=== PATIENT | male | born 1975 | race Caucasian/White ===

== ENCOUNTER 2016-10-04 21:23 | Emergency (ER) | payer BC ==
[~2016-10-04] VITALS: Ht 182.9 cm; Wt 67.3 kg
[2016-10-04 21:26] VITALS: TEMP 36.7; Ht 182.9 cm; Wt 67.3 kg
[2016-10-04] MEDS ORDERED: ONDANSETRON INJ 2 MG/ML 2 ML VIAL IV STA (21:44)
[2016-10-04] MEDS ORDERED: SODIUM CHLORIDE 0.9% 1000ML 2,000 ML IV STA (21:44)
[2016-10-04] MEDS ORDERED: FAMOTIDINE IV INJ 20 MG in DEXTROSE 5% 100ML 100 ML IV STA (21:44)
[2016-10-04] MEDS ORDERED: FAMOTIDINE 20MG/102 ML D5W ONE (21:49)
[2016-10-04 21:53] LABS: BASO % 0.2 %; BASO ABS # 0.01 K/uL (0-0.2); COMPLETE YES; EOS % 0.2 %; HEMATOCRIT 40.7 % (42-52); IG% 0.2 %; LYMPH % 9.2 %; LYMPH ABS # 0.59 K/uL (1.2-3.4); MEAN CELL VOLUME 85.9 fL (80-100); MEAN CORPUSCULAR HEMOGLOBIN 31.6 pg (25-34); MEAN CORPUSCULAR HGB CONC 36.9 g/dl (32-36); MEAN PLATELET VOLUME 9.3 fL (7.4-10.4); MONO % 7.2 %; PLATELET COUNT 206 K/uL (130-400); RED BLOOD COUNT 4.74 M/uL (4.7-6.1); WHITE BLOOD COUNT 6.38 K/uL (4.8-10.8)
[2016-10-04 22:07] LABS: BUN/CREATININE RATIO 23.7 (10-20); CALCIUM 8.4 mg/dl (8.5-10.1); CREATININE 0.94 mg/dl (0.60-1.40); MAGNESIUM 2.1 mg/dl (1.8-2.4); POTASSIUM 3.6 mmol/L (3.5-5.1)
[2016-10-04] MEDS ORDERED: MULT-506 PO (22:16)
[2016-10-04] MEDS ORDERED: DiphenhydrAMINE HCL 50 MG/ML VIAL IV STA (22:38)
[2016-10-04] MEDS ORDERED: METOCLOPRAMIDE HCL INJ 5 MG/ML 2 ML VIAL IV STA (22:38)
[2016-10-04] MEDS ORDERED: ONDANSETRON HOME PACK 4MG OD TAB PO ONE (23:30)
[2016-10-04 23:32] VITALS: BP 108/65; PULSE 80; O2SAT 97
--- NOTE | 2016-10-05 01:53 | EMERGENCY ROOM VISIT NOTE ---
History First contact with patient: 21:39 Chief Complaint: ILLNESS Stated Complaint: STOMACH FLU History of Present Illness The patient is a 41 year old male who presents to the Emergency Room with complaints of nausea and vomiting for the past day who's son was sick with same illness a few days ago. Patient denies fever, diarrhea, abdominal pain, chest pain, dyspnea, cough, congestion, neck stiffness. He is unable to keep fluids down. No bad food exposure. Vomiting is nonbloody and nonbilious non-coffee- ground in nature. Review of Systems See HPI for pertinent positives & negatives. A total of 10 systems reviewed and were otherwise negative. Past Medical/Surgical History Hernia repair Social History Smoking Status: Never Smoker Smokeless Tobacco Use: No Alcohol Use: none Drug Use: none Marital Status: Housing Status: lives with family Occupation Status: employed Current/Historical Medications Scheduled Multivitamin (Multivitamin), 1 TAB PO DAILY Allergies Coded Allergies: No Known Allergies (Unverified , 10/04/16) Physical Exam Vital Signs Date Time Temp Pulse Resp B/P Pulse Ox O2 Delivery O2 Flow Rate FiO2 10/04/16 23:32 80 16 108/65 97 10/04/16 23:20 80 16 108/65 97 Room Air 10/04/16 21:26 36.7 85 18 119/63 97 Room Air Pain Rating (0-10): 0 Physical Exam VITALS: Vitals are noted on the nurse's note and reviewed by myself. Vital signs stable. GENERAL: Pleasant male retching, in no acute distress, nondiaphoretic, well- developed well-nourished. SKIN: The skin was without rashes, erythema, edema, or bruising. There is no tenting of the skin. Capillary reflex less than 2 seconds. HEAD: Normocephalic atraumatic. EARS: External auditory canals clear, tympanic membranes pearly liu without erythema or effusion bilaterally. EYES: Pupils equal round and reactive to light and accommodation. Conjunctivae without injection, sclerae without icterus. Extraocular movements intact. NOSE: Patent, turbinates without inflammation or discharge. MOUTH: Mucous membranes mildly dry. Pharynx without erythema or exudate. Uvula midline. Airway patent. Tongue does not deviate. NECK: Supple without nuchal rigidity. No lymphadenopathy. No thyromegaly. Cervical spine is nontender. No JVD. HEART: Regular rate and rhythm without murmurs gallops or rubs. LUNGS: Clear to auscultation bilaterally without wheezes, rales or rhonchi. No dullness to percussion. No retractions or accessory muscle use. ABDOMEN: Positive bowel sounds x 4. Normal tympanic percussion. Soft, nontender, without masses or organomegaly. Mann sign negative. No guarding or rebound tenderness. MUSCULOSKELETAL: No muscle atrophy, erythema, or edema noted. NEURO: Patient was alert and oriented to person place and time. Normal sensation to light and sharp touch. No focal neurological deficits. Medical Decision & Procedures Laboratory Results 10/04/16 21:35 Red Blood Count 4.74, Mean Corpuscular Volume 85.9, Mean Corpuscular Hemoglobin 31.6, Mean Corpuscular Hemoglobin Concent 36.9, Mean Platelet Volume 9.3, Neutrophils (%) (Auto) 83.0, Lymphocytes (%) (Auto) 9.2, Monocytes (%) (Auto) 7.2, Eosinophils (%) (Auto) 0.2, Basophils (%) (Auto) 0.2, Neutrophils # (Auto) 5.30, Lymphocytes # (Auto) 0.59, Monocytes # (Auto) 0.46, Eosinophils # (Auto) 0.01, Basophils # (Auto) 0.01 10/04/16 21:35 Test 10/04/16 21:35 White Blood Count 6.38 K/uL (4.8-10.8) Red Blood Count 4.74 M/uL (4.7-6.1) Hemoglobin 15.0 g/dL (14.0-18.0) Hematocrit 40.7 % (42-52) Mean Corpuscular Volume 85.9 fL (80-100) Mean Corpuscular Hemoglobin 31.6 pg (25-34) Mean Corpuscular Hemoglobin Concent 36.9 g/dl (32-36) Platelet Count 206 K/uL (130-400) Mean Platelet Volume 9.3 fL (7.4-10.4) Neutrophils (%) (Auto) 83.0 % Lymphocytes (%) (Auto) 9.2 % Monocytes (%) (Auto) 7.2 % Eosinophils (%) (Auto) 0.2 % Basophils (%) (Auto) 0.2 % Neutrophils # (Auto) 5.30 K/uL (1.4-6.5) Lymphocytes # (Auto) 0.59 K/uL (1.2-3.4) Monocytes # (Auto) 0.46 K/uL (0.11-0.59) Eosinophils # (Auto) 0.01 K/uL (0-0.5) Basophils # (Auto) 0.01 K/uL (0-0.2) RDW Standard Deviation 40.7 fL (36.4-46.3) RDW Coefficient of Variation 12.8 % (11.5-14.5) Immature Granulocyte % (Auto) 0.2 % Immature Granulocyte # (Auto) 0.01 K/uL (0.00-0.02) Anion Gap 12.0 mmol/L (3-11) Est Creatinine Clear Calc Drug Dose 97.4 ml/min Estimated GFR () 115.4 Estimated GFR (Non- 99.6 BUN/Creatinine Ratio 23.7 (10-20) Calcium Level 8.4 mg/dl (8.5-10.1) Magnesium Level 2.1 mg/dl (1.8-2.4) Medications Administered Medications (Trade) Dose Ordered Sig/Girish Route Start Time Stop Time Status Last Admin Dose Admin Sodium Chloride (Nss 1000ml) 2,000 ml @ 999 mls/hr Q2H1M STAT IV 10/04/16 21:44 10/04/16 23:44 DC 10/04/16 21:50 999 MLS/HR Ondansetron HCl 4 mg 4 mg NOW STAT IV 10/04/16 21:44 10/04/16 21:45 DC 10/04/16 21:50 4 MG Famotidine/ Dextrose (Pepcid IV Inj/ D5 100ml) 102 ml @ 200 mls/hr NC STAT IV 10/04/16 21:44 10/04/16 22:14 DC 10/04/16 21:50 200 MLS/HR Metoclopramide HCl (Reglan Inj) 10 mg NOW STAT IV 10/04/16 22:38 10/04/16 22:39 DC 10/04/16 22:44 10 MG Diphenhydramine HCl (Benadryl Inj) 12.5 mg NOW STAT IV 10/04/16 22:38 10/04/16 22:39 DC 10/04/16 22:44 12.5 MG Ondansetron HCl (ZOFRAN ODT 4MG Home Pack) 1 homepack UD ONCE PO 10/04/16 23:30 10/04/16 23:31 DC 10/04/16 23:31 1 HOMEPACK ED Course Prior records/ancillary studies reviewed. Triage Nursing notes reviewed. Additional history obtained from the family. The patient's history was concerning for nausea, vomiting. Differential diagnosis: Etiologies such as gastroenteritis, food borne illness, infections, appendicitis , diverticulitis, inflammatory bowel disease, obstruction, GI bleed, biliary pathology, as well as others were entertained. Physical examination findings: As above. Abdominal examination revealed no tenderness. Vital signs reviewed and revealed stable. ER treatment provided: IV hydration 2 L NSS. Zofran, Reglan, Benadryl On reassessment the patient felt better. Patient was tolerating p.o. intake. Diagnostics interpretation by me: The labs revealed no worrisome leukocytosis or electrolyte abnormality This appears to be consistent with vomiting most likely viral in etiology. Patient was hydrated as above. He was able to tolerate by mouth fluids and felt better. He requested to leave. He was advised to do clear liquid diet today and then progress as tolerated to bland diet tomorrow. He was advised to follow-up family care in a few days or here in the ER sooner for abdominal pain , fevers, vomiting, worsening signs or symptoms or as needed. By the evaluation outlined above emergent etiologies such as appendicitis, diverticulitis, obstruction, cardiac sources, mesenteric ischemia, aortic pathology, inflammatory bowel disease, renal colic, PUD, biliary pathology, UTI, as well as others were deemed relatively unlikely. The pt informed about the findings as listed above. All questions were answered and pleased with the treatment. Return instructions were outlined and the patient was discharged in stable condition. Outpatient prescription management: Zofran Referral: The patient was referred to their primary care physician for follow-up in 2 to 3 days for a recheck of the current condition. Medical Decision As above Impression Primary Impression: Vomiting Additional Impression: Dehydration Departure Information Dispostion Home / Self-Care Condition GOOD Forms WORK / SCHOOL INSTRUCTIONS, HOME CARE DOCUMENTATION FORM, Days off work : 2 Work Instructions, IMPORTANT VISIT INFORMATION Patient Instructions Vomiting - [facility], [facility] Additional Instructions DO NOT drive, drink alcohol, operate machinery, or perform dangerous activities today. You were given medications in the ER that can affect your ability to safely function or operate a vehicle. Zofran(odansetron) tablets 4mg: Take one and allow it to dissolve in your mouth every four to six hours as needed for nausea or vomiting. Rest and drink plenty of fluids as tolerated. Slow sips of water or sports drinks are recommended instead of large amounts all at once. Continue current medications. Once your stomach is settled start with a clear liquid diet (jello, soup broth, etc.) and then advance as tolerated. You should avoid full, heavy meals for about 24 hrs from the time your symptoms resolved. Return to the ER for persistent vomiting, fevers, abdominal pain, chest pains, difficulty breathing, black or bloody stools, worsening of your condition, or as needed. Follow up with your primary physician in 2-3 days for a recheck of your current condition. Problem Qualifiers
== END 2016-10-04 23:32 | disposition home or self-care (01) ==
LOC: C.EDB 21:26
DX: R11.2 Nausea with vomiting, unspecified (principal); E86.0 Dehydration

== ENCOUNTER 2024-05-05 15:41 | Observation (INO) ==
[2024-05-05 18:03] LABS: Basophils # (auto) 0.04 K/uL (0.00-0.20); Basophils % (auto) 0.5 %; Eosinophils % (auto) 2.5 %; Hematocrit (blood only) 41.9 % (42.0-52.0); Hemoglobin 15.1 g/dl (14.0-18.0); Immature Granulocytes # (auto) 0.01 K/uL (0.01-0.20); Immature Granulocytes % (auto) 0.1 %; Lymphocytes # (auto) 3.84 K/uL (1.20-3.40); Lymphocytes % (auto) 47.1 %; Mean Corpuscular Hemoglobin 30.9 pg (25.0-34.0); Mean Corpuscular Volume 85.7 fL (80.0-100.0); Mean Platelet Volume 9.1 fL (9.4-12.4); Monocytes # (auto) 0.42 K/uL (0.11-0.59); Monocytes % (auto) 5.1 %; Neutrophils # (auto) 3.65 K/uL (1.40-6.50); Neutrophils % (auto) 44.7 %; Platelet Count 291 K/uL (130-400); RDW Coefficient of Variation 12.7 % (11.5-14.5); RDW Standard Deviation 39.7 fL (36.4-46.3); Red Blood Count 4.89 M/uL (4.70-6.10); White Blood Count 8.16 K/ul (4.8-10.8)
[2024-05-05 18:18] LABS: Albumin Globulin Ratio 1.4 (0.9-2); Albumin Level 4.8 gm/dl (3.4-5.0); BUN Creatinine Ratio 14.9 (10-20); Bilirubin,Total 0.5 mg/dl (0.2-1.0); Calcium 9.6 mg/dl (8.6-10.3); Creatinine Clr Calc Pharmacy 104.3 ml/min; Est GFR (African American) 109.9 ml/min; Est GFR (Non-African American) 94.8 ml/min; Globulin 3.5 gm/dl (2.5-4.0); Potassium 4.5 mmol/L (3.5-5.1); Total Protein 8.3 gm/dl (6.0-8.3)
[2024-05-05 18:28] LABS: Appearance Urine Clear (Clear); Bilirubin Urine Negative (Negative); Blood Urine Negative (Negative); Color Urine Yellow; Glucose Urine UA Negative (Negative); Ketones Urine Negative (Negative); Leukocyte Esterase Urine Negative (Negative); Nitrite Urine Negative (Negative); Protein Urine Negative (Negative); Specific Gravity Urine 1.014 (1.000-1.030); Urobilinogen Urine Negative (Negative); pH Urine 6.5 (4.5-7.5)
--- NOTE | 2024-05-05 19:02 | CT Scan Report ---
CT SCAN OF THE ABDOMEN AND PELVIS WITHOUT IV CONTRAST CLINICAL HISTORY: Right lower quadrant abdominal pain. COMPARISON STUDY: No priors. TECHNIQUE: CT scan of the abdomen and pelvis is performed from the lung bases to the proximal femora. Images are reviewed in the axial, sagittal, and coronal planes. IV contrast was not administered for this examination. A dose lowering technique was utilized adhering to the principles of ALARA. CT DOSE: 695.26 mGy.cm FINDINGS: Lung bases: The heart is normal in size and without pericardial effusion. The lung bases are clear. Liver: The unenhanced liver is normal in size, contour, and attenuation. There is no intrahepatic joseph iary ductal dilatation. Gallbladder: Unremarkable. Spleen: Normal in size and attenuation. Pancreas: Unremarkable. Adrenal glands: Unremarkable. Kidneys: The unenhanced kidneys are normal in size and without hydronephrosis. There are no renal nabil culi identified. There is no evidence of contour deforming renal mass lesion. A circumaortic left ez al vein is incidentally noted. Abdominal vasculature: The abdominal aorta is normal in course and caliber. Bowel: There is no bowel obstruction. Mild fecal retention is seen throughout the colon. There are sc attered colonic diverticula without CT evidence of acute diverticulitis. The appendix is dilated, me asuring up to 10 mm as seen on image #222. The appendiceal wall is thickened and there is surrounding infiltration. There are several calcified appendicoliths as seen on images #214 and #221. This is co nsistent with acute appendicitis. No fluid collection is seen to suggest abscess. Peritoneum: There is trace free fluid in the pelvis. No intraperitoneal free air is identified. There is a fat-containing umbilical hernia. Lymphadenopathy: Prominent mesenteric lymph nodes in the right lower quadrant are likely reactive. Pelvic viscera: The bladder, prostate, and seminal vesicles are normal as imaged. Skeletal structures: No lytic or blastic lesions are seen. IMPRESSION: 1. Acute appendicitis. 2. There is no evidence of abscess or perforation. ACT 112: Negative or not required by law. Electronically signed by: Ignacio Mckeon M.D. 05/05/2024 7:00 PM
[2024-05-05] MEDS: cefOXitin 2,000 MG/60 ML BAG IV STA (19:46)
[2024-05-05] MEDS ORDERED: DEXAMETHASONE SOD INJ 4 MG/ML VIAL ONE (20:06)
[2024-05-05] MEDS ORDERED: ROCURONIUM BROMIDE 10 MG/ML 5 ML VIAL IV ONE (20:06)
[2024-05-05] MEDS ORDERED: LIDOCAINE 2% 2 ML VIAL/AMP(20MG/ML) INFIL ONE (20:06)
[2024-05-05] MEDS ORDERED: MIDAZOLAM HCL 1 MG/ML 2ML VIAL ONE (20:06)
[2024-05-05] MEDS ORDERED: ONDANSETRON INJ 2 MG/ML 2 ML VIAL ONE (20:06)
[2024-05-05] MEDS ORDERED: PROPOFOL IV EMULSION 10 MG/ML 20 ML VIAL IV ONE (20:06)
[2024-05-05] MEDS ORDERED: HYDROmorphone INJ 1 MG/ML SYRINGE ONE (20:07)
[2024-05-05] MEDS ORDERED: SUGAMMADEX SODIUM 200 MG/2 ML VIAL IV ONE (20:07)
--- NOTE | 2024-05-05 20:08 | History & Physical Report ---
Date of Service May 05, 2024 Assessment & Plan (1) Appendicitis, acute: Plan: IVF IV abx to OR fgor lap appendectomy Present on Admission?: Yes History of Present Illness Chief Complaint: abdominal pain Primary Care Provider: Bri Cohen MD This is 48YO with acute right sided abdominal pain which began today with nausea and diarrhea. A CT scan shows early appendicitis with an appendoclith. Allergies Allergy/AdvReac Type Severity Reaction Status Date / Time Iodinated Contrast Media Allergy Mild Hives Unverified 05/05/24 18:38 Home Medications Medication Instructions Recorded Confirmed Type Multivitamin 1 tab PO DAILY #0 tabs 10/04/16 History Past Med/Surg History Problem List (Updated 05/05/24 @ 20:09 by Florian Barreto MD) Appendicitis, acute Dehydration (Acute) Vomiting (Acute) Medical History (Updated 05/05/24 @ 20:09 by Florian Barreto MD) No significant active problems Social History Smoking Status: Never smoker Preferred Language: Luxembourgish Feels Safe at Home: Yes Review of Systems + fever and + anorexia; no chills no problem reported no problem reported no cough and no dyspnea no chest pain + abdominal pain, + nausea and + diarrhea/loose stools; no vomiting no dysuria no back pain no problem reported no localized weakness and no generalized weakness no behavioral changes no fatigue no easy bleeding and no easy bruising Physical Exam Constitutional: WD/WN, vitals as above Eyes: PERRL, conjunctivae normal, anicteric sclerae ENMT: external ear and nose normal, oropharynx normal Neck: trachea midline Respiratory: normal respiratory effort, lungs clear to auscultation Cardiovascular: RRR, no murmur, no edema Gastrointestinal (Abdomen): Inspection/Auscultation: abdomen normal to inspection and normal bowel sounds; abdomen not distended and no visible herniation Percussion/Palpation: + abdomen tender, + guarding and abdomen soft; abdomen not rigid Musculoskeletal: Head/Neck/Chest: normocephalic and head atraumatic Skin: no rashes, warm and dry Psychiatric: Orientation: alert and oriented x 3 Results & Data Vital Signs (Past 12 Hours) Vital Signs Temp Pulse Pulse Resp BP BP Pulse Ox 05/05/24 19:05 43 L 05/05/24 19:05 46 L 16 135/80 100 05/05/24 19:05 45 L 14 99 05/05/24 15:49 36.9 C 68 22 143/94 H 100 O2 Del Method 05/05/24 19:05 05/05/24 19:05 Room Air 05/05/24 19:05 Room Air 05/05/24 15:49 Room Air Diagnostic Findings CT SCAN OF THE ABDOMEN AND PELVIS WITHOUT IV CONTRAST CLINICAL HISTORY: Right lower quadrant abdominal pain. COMPARISON STUDY: No priors. TECHNIQUE: CT scan of the abdomen and pelvis is performed from the lung bases to the proximal femora. Images are reviewed in the axial, sagittal, and coronal planes. IV contrast was not administered for this examination. A dose lowering technique was utilized adhering to the principles of ALARA. CT DOSE: 695.26 mGy.cm FINDINGS: Lung bases: The heart is normal in size and without pericardial effusion. The lung bases are clear. Liver: The unenhanced liver is normal in size, contour, and attenuation. There is no intrahepatic biliary ductal dilatation. Gallbladder: Unremarkable. Spleen: Normal in size and attenuation. Pancreas: Unremarkable. Adrenal glands: Unremarkable. Kidneys: The unenhanced kidneys are normal in size and without hydronephrosis. There are no renal calculi identified. There is no evidence of contour deforming renal mass lesion. A circumaortic left renal vein is incidentally noted. Abdominal vasculature: The abdominal aorta is normal in course and caliber. Bowel: There is no bowel obstruction. Mild fecal retention is seen throughout the colon. There are scattered colonic diverticula without CT evidence of acute diverticulitis. The appendix is dilated, measuring up to 10 mm as seen on image #222. The appendiceal wall is thickened and there is surrounding infiltration. There are several calcified appendicoliths as seen on images #214 and #221. This is consistent with acute appendicitis. No fluid collection is seen to suggest abscess. Peritoneum: There is trace free fluid in the pelvis. No intraperitoneal free air is identified. There is a fat-containing umbilical hernia. Lymphadenopathy: Prominent mesenteric lymph nodes in the right lower quadrant are likely reactive. Pelvic viscera: The bladder, prostate, and seminal vesicles are normal as imaged. Skeletal structures: No lytic or blastic lesions are seen. IMPRESSION: 1. Acute appendicitis. 2. There is no evidence of abscess or perforation.
[2024-05-05] MEDS ORDERED: ONDANSETRON INJ 2 MG/ML 2 ML VIAL IV PRN ×2 (20:12→23:02)
[2024-05-05] MEDS ORDERED: ePHEDrine sulfate 50 MG/ML AMP IV PRN (20:12)
[2024-05-05] MEDS ORDERED: ATROPINE SULFATE 0.1 MG/ML 10ML SYR IV PRN (20:12)
--- NOTE | 2024-05-05 20:12 | Anesthesiology Consultation ---
Date of Service May 05, 2024 Assessment & Plan (1) Encounter for pre-operative examination: Chart Review Chart Review: Patient NOT seen in Pre Admission Testing emergent procedure Consults Requested none History Surgery Operation Date: 05/05/24 20:15 Proposed Procedures p Laparoscopic Appendectomy - Florian Barreto MD Height/Weight Height: 6 ft Weight: 77.7 kg Allergies Allergy/AdvReac Type Severity Reaction Status Date / Time Iodinated Contrast Media Allergy Mild Hives Unverified 05/05/24 18:38 Medications Home Medications Medication Instructions Recorded Confirmed Last Taken Multivitamin 1 tab PO DAILY #0 tabs 10/04/16 Unknown Active Medications Generic Name Dose Route Start Last Admin Trade Name Freq PRN Reason Stop Dose Admin Cefoxitin Sodium 2,000 mg in 60 mls @ 100 mls/hr 05/05/24 19:38 05/05/24 19:46 Mefoxin IV 05/05/24 20:13 100 mls/hr NOW STA Administration Past Medical History Medical History No significant active problems Social History Smoking Status: Never smoker Physical Exam Vital Signs Last Vital Signs Temp 98.4 F 05/05/24 15:49 Pulse 46 L 05/05/24 19:05 Resp 16 05/05/24 19:05 BP 135/80 05/05/24 19:05 Pulse Ox 100 05/05/24 19:05 O2 Del Method Room Air 05/05/24 19:05 Testing Laboratory Results 05/05/24 17:48 05/05/24 17:48 Urine Color Yellow 05/05/24 18:05 Urine Appearance Clear (Clear) 05/05/24 18:05 Urine pH 6.5 (4.5-7.5) 05/05/24 18:05 Ur Specific [place] 1.014 (1.000-1.030) 05/05/24 18:05 Urine Protein Negative (Negative) 05/05/24 18:05 Urine Glucose (UA) Negative (Negative) 05/05/24 18:05 Urine Ketones Negative (Negative) 05/05/24 18:05 Urine Nitrite Negative (Negative) 05/05/24 18:05 Ur Leukocyte Esterase Negative (Negative) 05/05/24 18:05
--- OUTSIDE RECORDS SUMMARY | 2024-05-05 20:20 | External Medical Summary | Summary of Care ---
Author Name Unknown Organization [facility] Address [address] [place] [address] Phone [phone] Care Team Providers Care Industrial Eng Name Role Phone Benjamin Cohen MD Primary Care Provider [phone] Reason for Visit * Reason Comments eRx-Medication Refill Encounter Details Date Type Department Care Team (Late st Contact Info) Description 03/24/2024 Refill General Internal Medicine [facility] [address] [facility] [place] [address] Zena Rose MD [address] [place] [address] Acute non-recurrent frontal sinusitis Allergies No known active allergiesdocumented as of this encounter (statuses as of 03/24/2024) Medications Medication Sig Dispensed Refills Start Date End Date Status SALINE NASAL SPRAY 0.65 % NA SOLNIndications:R ecurrent sinus infections,Nonall ergic rhinitis 2 squirts each nostril morning and night and every 2-4 hrs as needed for nasal dryness, congestion, AND WITH RESPIRATORY INFECTIONS 1 Bottle 3 04/02/2014 Active VITAMIN D 1000 UNITS PO CAPS 1 capsule daily 30 Cap 11 04/06/2014 Active Ferrous Gluconate 240 (27 Fe) MG Oral Tablet Take by mouth. Active Cetirizine HCl 10 MG Oral Tablet Chewable Take 1 Tablet by mouth in the morning. Active diphenhydrAMINE HCl 25 MG Oral Capsule (Benadryl) Take 1 Capsule by mouth daily as needed for Rhinitis. 1 Capsule 12/29/2022 Active Fluticasone Propionate 50 MCG/ACT Nasal Suspension (Flonase) ADMINISTER 1 SPRAY INTO EACH NOSTRIL DAILY Strength: 50 MCG/ACT 48 mL 2 09/01/2023 Active methylPREDNISolon e 4 MG Oral Tablet Therapy Pack (Medrol Dosepack)Indicati ons:Acute low back pain without sciatica, unspecified back pain laterality follow package directions 21 Tablet 09/05/2023 Active Additional Information Patient not taking.Reported on 10/25/2023 Albuterol Sulfate HFA 108 (90 Base) MCG/ACT Inhalation Aerosol SolutionIndicatio ns:Acute bronchitis, antibiotics not indicated Inhale 2 Puffs by mouth every 6 hours as needed for Cough or Other (chest tightness). 18 g 1 02/07/2024 Active Azithromycin 250 MG Oral Tablet (Zithromax Z-Lito)Indications :Bronchitis, complicated Take two tablets by mouth on first day, then 1 tablet daily until gone 6 Tablet 02/20/2024 Active Azelastine HCl 137 MCG/SPRAY Nasal SolutionIndicatio ns:Acute non-recurrent frontal sinusitis SPRAY 1 SPRAY INTO INTO EACH NOSTRIL IN THE MORNING AND AT BEDTIME 90 mL 3 03/24/2024 Active Azelastine HCl 0.1 % Nasal Solution (Astelin)Indicati ons:Acute non-recurrent frontal sinusitis Administer 1 [place] into nostril in the morning and 1 [place] before bedtime. 90 mL 03/12/2023 4 Discontinued documented as of this encounter (statuses as of 03/24/2024) Active Problems Problem Noted Date Diagnosed Date Recurrent sinus infections 04/02/2014 Nonallergic rhinitis 04/02/2014 documented as of this encounter (statuses as of 03/24/2024) Immunizations Name Administration Dates Next Due COVID-19, MRNA-LNP, 23-24, P F, 30 MCG/0.3 mL, 12 YRS AND ABOVE, IM (PFIZER-Comirnaty) 06/01/2023 Seasonal Influenza Intranasal 07/07/2014 Seasonal Influenza Virus Vac cine, Unspecified Formulation 06/26/2019 Seasonal Influenza, PF, 6 M & above, IM , (FluLaval or Fluzone) 08/17/2022,06/06/2018,05/21/2017 Seasonal Influenza, Quad, Nasal (Flumist) 2018,06/13/2018,05/18/2018 Seasonal Influenza, Quadrivalent, ID 08/07/2023 Seasonal Influenza, Quadriva lent, No Preserve, IM 06/20/2015 TD, Preservative Free 04/06/2014 TDAP, Age 7 and older, IM (Adacel) 03/02/2004 documented as of this encounter Social History Tobacco Use Types Packs/Day Years Used Date Smoking Tobacco: Never Smokeless Tobacco: Never Comments:no passive smoke Alcohol Use Standard Drinks/Week Comments Yes 0 (1 standard drink = 0.6 oz pure alcohol) on occasion, once every 2 weeks--one drink. PHQ-2 Answer Date Recorded PHQ-2 Score 6 03/01/2020 Hunger Vital Sign Answer Date Recorded Worried About Running Out of Food in the Last Ye ar Never true 08/24/2019 Ran Out of Food in the Last Year Never true 08/24/2019 Utilities Answer Date Recorded Do you have trouble paying y our heating, water, or electric bill? (Adult - for ages 18 years and over) Not on file 02/22/2024 Is your family able to pay t he heat, water, or electric bill? (Household - for ages 0-17 years) Not on file 02/22/2024 Does your family have access to good internet? (Household - for ages 0-17 years) Not on file 02/22/2024 Social Connections Answer Date Recorded How often do you feel lonely or isolated from those around you? (Adult - for ages 18 years and over) Not on file 02/22/2024 Sex and Gender Information Value Date Recorded Sex Assigned at Male 04/11/2019 1:49 PM EDT Gender Identity Male 04/11/2019 1:49 PM EDT Sexual Orientation Straight 10/23/2023 4: 04 PM EST Sexual Orientation Choose not to disclose 2023 4:04 PM EST Job Start Date Occupation Industry Not on file Not on file Not on file documented as of this encounter Miscellaneous Notes * Telephone Encounter - Starr Miller, [facility] - 03/24/2024 11:55 AM EDT Signed Prescriptions: Disp Refills Azelastine HCl 137 MCG/SPRAY Nasal [id number] mL 3 Sig: SPRAY 1 SPRAY INTO INTO EACH NOSTRIL IN THE MORNING AND AT BEDTIMEAuthorizing Provider: BENJAMIN COHENOrdersolo User: STARR MILLER documented in this encounter Plan of Treatment Scheduled Procedures Name Priority Associated Diagnoses Date/Ti me COLONOSCOPY FLEXIBLE PROXIMA L DIAGNOSTIC Recall Special screening for malignant neoplasms, colon Health Maintenance Due Date Last Done Comments HIV Screening 1989 Hepatitis C Screening 1992 Hepatitis B Vaccine (1 of 3 - 19+ 3-dose series) 1993 Cologuard 2019 Fecal Occult Blood Test 2019 02/18/2015 Sigmoidoscopy 2019 Depression Screening 03/01/2021 03/01/2020 DTaP,Tdap,and Td Vaccines (3 - Td or Tdap) 04/06/2024 04/06/2014, 03/02/2004 Influenza Vaccine (FLU shot) (#1) 2024 08/07/2023, 08/17/2022, 06/26/2019, Additional history exists Colonoscopy 03/13/2025 03/13/2015, 03/13/2015 Colorectal Cancer Screening 03/13/2025 Lipid Panel 10/28/2028 10/28/2023, 03/0 04/2018, 03/20/2014 COVID-19 Vaccine Completed 06/01/2023 HPV (Gardasil) Vaccine Aged Out No lo nger eligible based on patient's age to complete this topic MENINGOCOCCAL (MENACTRA/MENVEO) Aged Out No longer eligible based on patient's age to complete this topic Pneumococcal Vaccine: Pediatrics (0 to 5 Years) and At-Risk Patients (6 to 64 Years) Aged Out No longer eligible based on patient's age to complete this topic documented as of this encounter Medical Devices Not on filedocumented as of this encounter Visit Diagnoses Diagnosis Acute non-recurrent frontal sinusitis documented in this encounter Care Teams Industrial Eng Relationship Specialty Start Date End Date Benjamin Cohen MD [address] [place] [address] PCP - General Internal Medicine 03/17/24 documented as of this encounter
--- OUTSIDE RECORDS SUMMARY | 2024-05-05 20:20 | External Medical Summary | Summary of Care ---
Author Name Unknown Organization [facility] Address [address] [place] [address] Phone [phone] Care Team Providers Care Learning Disabled Teacher Name Role Phone Divya Goins MD Primary Care Provider + Reason for Visit * Reason Comments Cough Encounter Details Date Type Department Care Team (Late st Contact Info) Description 02/07/2024 12:00 PM EDT Office Visit General Internal Medicine [facility] [address] [place] [address] Bri Cohen MD [address] [place] [address] Acute bronchitis, antibiotics not indicated*; Diarrhea of infectious origin; Recurrent sinus infections; Nonallergic rhinitis Allergies No known active allergiesdocumented as of this encounter (statuses as of 02/21/2024) Medications Medication Sig Dispensed Refills Start Date End Date Status SALINE NASAL SPRAY 0.65 % NA SOLNIndications:Rec urrent sinus infections,Nonaller gic rhinitis 2 squirts each nostril morning and [...] needed for Rhinitis. 1 Capsule 12/29/2022 Active Azelastine HCl 0.1 % Nasal Solution (Astelin)Indication s:Acute non-recurrent frontal sinusitis Administer 1 Bethany into nostril in the morning and 1 Bethany before bedtime. 90 mL 03/12/2023 Active Fluticasone Propionate 50 MCG/ACT Nasal Suspension (Flonase) ADMINISTER 1 SPRAY INTO EACH NOSTRIL DAILY Strength: 50 MCG/ACT 48 mL 2 09/01/2023 Active methylPREDNISolone 4 MG Oral Tablet Therapy Pack (Medrol Dosepack)Indication s:Acute low back pain without sciatica, unspecified back pain laterality follow package directions 21 Tablet 09/05/2023 Active Additional Information Patient not taking.Reported on 10/25/2023 Albuterol Sulfate HFA 108 (90 Base) MCG/ACT Inhalation Aerosol SolutionIndications :Acute bronchitis, antibiotics not indicated Inhale 2 Puffs by mouth every 6 hours as needed for Cough or Other (chest tightness). 18 g 1 02/07/2024 Active documented as of this encounter (statuses as of 02/21/2024) Active Problems Problem Noted Date Diagnosed Date Recurrent sinus infections 04/02/2014 Nonallergic rhinitis 04/02/2014 documented as of this encounter (statuses as of 02/21/2024) Immunizations Name Administration Dates Next Due COVID-19, [...] in the Last Year Never true 08/24/2019 Sex and Gender Information Value Date Recorded Sex Assigned at Male 04/11/2019 1:49 PM EDT Gender Identity Male 04/11/2019 1:49 PM EDT Sexual Orientation Straight 10/23/2023 4: 04 PM EST Sexual Orientation Choose not to disclose 2023 4:04 PM EST Job Start Date Occupation Industry Not on file Not on file Not on file Travel History Travel Start Travel End [place] 01/25/2024 01/31/2024 [facility] 01/20/2024 01/25/2024 documented as of this encounter Last Filed Vital Signs Vital Sign Reading Time Taken Comments Blood Pressure 110/70 02/07/2024 12:09 PM EDT Pulse 65 02/07/2024 12:09 PM EDT Temperature 36.5 C (97.7 F) 02/07/2024 12:09 PM E DT Respiratory Rate 6 02/07/2024 12:09 PM EDT Oxygen Saturation 99% 02/07/2024 12:09 PM EDT Inhaled Oxygen Concentration - - Weight 75.9 kg (167 lb 6.4 oz) 02/07/2024 12:09 PM EDT Height 182.9 cm (6') 02/07/2024 12:09 PM EDT Body Mass Index 22.7 02/07/2024 12:09 PM EDT documented in this encounter Progress Notes * Bri Cohen MD - 02/07/2024 12:19 PM EDT Images from the original note were not included. History of Present Illness Jason Allen is a 48 year old male that presents for Cough Had stomach bug with diarrhea and abd pain and vomiting - total 3 days while in [place] 1-2 weeks ago. Seen local doc - diagnosed with viral - given anti-diarrhea agent Low appetite and abd cramping but diarrhea better . Had h/o similar illness where it took a while to get back to baseline Cough This is a new problem. The current episode started in the past 7 days (10 days). The cough is Non-productive. Associated symptoms include headaches, nasal congestion, postnasal drip and a sore throat. Pertinent negatives include no chest pain, shortness of breath or wheezing. Associated symptoms comments: Chest tightness . The symptoms are aggravated by exercise (at night and evening). He has tried OTC cough suppressant and rest for the symptoms. The treatment provided no relief. His past medical history is significant for bronchitis and environmental allergies. There is no history of asthma. Physical Exam Vitals: 02/07/24 1209 Temp: 36.5 C (97.7 F) Pulse: 65 Resp: 6 SpO2: 99% BP: 110/70 BMI: 22.7 I have reviewed the following results: Assessment and Plan Acute bronchitis, antibiotics not indicated Mucinex bid \ - Albuterol Sulfate HFA 108 (90 Base) MCG/ACT Inhalation Aerosol Solution; Inhale 2 Puffs by mouth every 6 hours as needed for Cough or Other (chest tightness). No prasanth rwill add prednisone and ATb Diarrhea of infectious origin Fluid, rest , low fat, low spicy and avoid dairy lili milk - HELICOBACTER PYLORI ANTIGEN, EIA, STOOL; Future Recurrent sinus infections Nonallergic rhinitis Wrap-Up Time: I spent a total of 30-39 minutes (exact time 32 mins) on the date of service in preparation, delivery, and documentation of the care provided to Jason Allen excluding any time spent in the performance of separately billed services. documented in this encounter Nursing Notes * Gabriela Reid LPN - 02/07/2024 12:07 PM EDT Patient presents today for a stomach bug on january 26. Since then he has been having ongoing stomachissues, cramping and lack of appetite. He has a chest cold now and has a cough. He wanted to be listened to to make sure everything is ok. documented in this encounter Plan of Treatment Scheduled Procedures Name Priority Associated Diagnoses Date/Ti me COLONOSCOPY FLEXIBLE PROXIMA L DIAGNOSTIC Recall Special screening for malignant neoplasms, colon Health Maintenance Due Date Last Done Comments HIV Screening 1989 Hepatitis C Screening 1992 Hepatitis B (1 of 3 - 19+ 3-dose series) 1993 Cologuard 2019 Fecal Occult Blood Test 2019 02/18/2015 Sigmoidoscopy 2019 Depression Screening 03/01/2021 03/01/2020 DTaP,Tdap,and Td Vaccines (3 - Td or Tdap) 04/06/2024 04/06/2014, 03/02/2004 Colonoscopy 03/13/2025 03/13/2015, 03/13/2015 Colorectal Cancer Screening 03/13/2025 Lipid Panel 10/28/2028 10/28/2023, 03/0 04/2018, 03/20/2014 COVID-19 Vaccine Completed 06/01/2023 Influenza Vaccine (FLU shot) Completed 10/2022, 08/17/2022, 06/26/2019, Additional history exists GARDASIL-HPV IMMUNIZATION SERIES Aged Out No longer eligible based on [...] Not on filedocumented as of this encounter Results * HELICOBACTER PYLORI ANTIGEN, EIA, STOOL (02/08/2024 9:08 AM EDT) H. Pylori Antigen Not Detected Not Detected 02/10/2024 5:36 PM EDT [facility] [place] Comment: Antimicrobials, proton pump inhibitors, and bismuth preparations inhibit H. pylori and ingestion up to two weeks prior to testing may cause false negative results. If clinically indicated the test should be repeated on a new specimen obtained two weeks after discontinuing treatment. Test Performed at: [facility] [address] [place] [address] Golden Heard M.D., Ph.D.,Director of Laboratories Stool Stool specimen / Unknown Non-blood Collection / Unknown 02/08/2024 9:08 AM EDT 02/08/2024 9:08 AM EDT Bri Cohen MD LAB FLUID AND STOOL ORDERABLES Performing Organization Address City/State/[facility] Phone Number [facility] [place] [id number] [place] [address] documented in this encounter Visit Diagnoses Diagnosis Acute bronchitis, antibiotics not indicated- Primary Acute bronchitis Diarrhea of infectious origin Diarrhea of presumed infectious origin Recurrent sinus infections Unspecified sinusitis (chronic) Nonallergic rhinitis Chronic rhinitis documented in this encounter Care Teams Learning Disabled Teacher Relationship Specialty Start Date End Date Divya Goins MD [address] [place] [address] PCP - General Internal Medicine 03/20/14 documented as of this encounter
--- OUTSIDE RECORDS SUMMARY | 2024-05-05 20:20 | External Medical Summary ---
Author Name Unknown Address Unknown Organization : Laboratory Report Ordering Provider Test Date Status CHONG ALEXANDER 02/08/2024 09:08:44 Final Observation Date Value Abnormality Reference (Units ) Status result / comment 02/08/2024 09:08:44 Not Detected Not Detected Final Antimicrobials, proton pump inhibitors, and bismuth
preparations inhibit H. pylori and ingestion up to
two weeks prior to testing may cause false negative
results. If clinically indicated the test should
be repeated on a new specimen obtained two weeks
after discontinuing treatment.

Test Performed at:
[facility]
[address] [facility]
[place] [address]
Golden Heard M.D., Ph.D.,Director of Laboratories Performing Location
--- OUTSIDE RECORDS SUMMARY | 2024-05-05 20:20 | External Medical Summary | Summary of Care ---
Author Name Unknown Organization [facility] Address [address] [place] [address] Phone [phone] Care Team Providers Care Interventional Pain Physician Name Role Phone Divya Goins MD Primary Care Provider + Reason for Visit * Reason Comments Outpatient Testing Encounter Details Date Type Department Care Team (Late st Contact Info) Description 02/07/2024 12:40 PM EDT Laboratory Laboratory [facility] [address] [place] [id number] [place], [facility] [address] [place] [address] Arrived Allergies No known active allergiesdocumented as of this encounter (statuses as of 02/07/2024) Medications Medication Sig Dispensed Refills Start Date [...] (Astelin)Indication s:Acute non-recurrent frontal sinusitis Administer 1 Wagram into nostril in the morning and 1 Wagram before bedtime. 90 mL 03/12/2023 Active Fluticasone [...] as of this encounter (statuses as of 02/07/2024) Active Problems Problem Noted Date Diagnosed Date Recurrent sinus infections 04/02/2014 Nonallergic rhinitis 04/02/2014 documented as of this encounter (statuses as of 02/07/2024) Immunizations Name Administration Dates Next Due COVID-19, [...] Travel Start Travel End [place] 01/25/2024 01/31/2024 [facility] 01/20/2024 01/25/2024 documented as of this encounter Plan of Treatment Scheduled Procedures [...] Not on filedocumented as of this encounter Care Teams Interventional Pain Physician Relationship Specialty Start Date End Date Divya Goins MD [address] [place] [address] PCP - General Internal Medicine 03/20/14 documented as of this encounter
[2024-05-05] MEDS ORDERED: GLYCOPYRROLATE 0.2 MG/ML VIAL ONE (21:08)
[2024-05-05] MEDS ORDERED: ATROPINE SULFATE 0.4 MG/ML 2ML SYR IV ONE (21:09)
[2024-05-05] MEDS ORDERED: SUCCINYLCHOLINE 100MG/5ML SYR IV ONE (21:09)
[2024-05-05] MEDS: BUPIVACAINE/EPINEPHRINE 0.5% MPF 1:200,000 30 ML VIAL ONE (21:23)
--- NOTE | 2024-05-05 21:30 | Operative Report ---
Post Operative Report Pre & Post Diagnosis Operation Date: 05/05/24 20:15 Acute appendicitis I identified the patient and participated in the time-out.: Yes Procedure Operation Date: 05/05/24 20:15 Laparoscopic appendectomy Surgeon Florian Barreto MD Cloud Engineer None Estimated Blood Loss 10 Findings Consistent with Post-Op Diagnosis Acute early appendicitis with appendicolith Specimens Appendix the pathology Drains None Anesthesia Type General Regional Complications None Indications This is a 48-year-old male who is seen in the ED with acute abdominal pain. He underwent a CT scan of his workup and showed an acute appendicitis. Talk to him in detail about this and recommended laparoscopic appendectomy. The risks in detail. Description of Procedure The patient was taken to the OR and underwent excellent general anesthesia. Their abdomen was prepped and draped in normal sterile fashion. A transverse supraumbilical incision was made, towel clamps were used to create tension on the abdominal wall as a Varess needle was inserted gently into the peritoneal cavity. Good pneumoperitoneum was achieved to about 15 mmHg pressure. Once this was done, a visualized 11 port was placed in the supraumbilical position. A 12 mm left lower quadrant port , a 5mm suprapubic port , and a 5mm right upper quadrant port were placed in normal fashion. Patient was then placed in head down and rolled to the left. A good diagnostic lap was performed. They had obvious acute appendicitis. The cecum was grasped with an atraumatic grasper. A grasper was then was then used to grasp the tip of the appendix. The mesoappendix was splayed open and a harmonic scalpel was used to take down the mesoappendix. The base of the appendix was identified and an Endo LAKESHA stapler was used to transect the appendix at its base. A Endobag was then inserted through the left lower quadrant port and the appendix was placed into the bag, The bag was removed through the left lower quadrant port. The appendix was then sent for pathologic evaluation. Pneumoperitoneum was re-established and the 12 mm port was replaced. Saline was then used to irrigate the abdomen. There was no active bleeding nor any other abnormalities noted in the abdomen. Patient was then placed back in neutral position, the ports were removed and the pneumoperitoneum decompressed. The 12mm port fascia was then closed using a 0 Vicryl. The skin was then anesthetized with 0.5% Marcaine with epinephrine local. Interrupted Vicryl is used to close the skin. Dermabond was used to reinforce the incisions. Sterile dressings were applied. The patient tolerated procedure without complications was sent to the postop recovery period of observation. They will be sent to the floor for the rest of their care. I attest to the content of the Intraoperative Record and any orders documented therein. Any exceptions are noted below.
[2024-05-05] MEDS: fentaNYL citrate PF 100 MCG/2 ML VIAL IV PRN (21:59)
--- NOTE | 2024-05-05 22:48 | Anesthesiology Progress Note ---
Date of Service May 05, 2024 Anesthesia Post Procedure Vital Signs Vital Signs: Temp Pulse Pulse Resp BP BP Pulse Ox 05/05/24 22:40 82 18 127/76 98 05/05/24 22:30 79 12 128/73 98 05/05/24 22:20 83 18 136/78 97 05/05/24 22:10 85 20 132/83 99 05/05/24 22:00 84 20 138/78 98 05/05/24 21:50 97.5 F L 86 14 138/79 100 05/05/24 21:40 92 H 16 136/70 99 05/05/24 21:32 97.0 F L 97 H 20 143/78 H 98 05/05/24 19:05 43 L 05/05/24 19:05 46 L 16 135/80 100 05/05/24 19:05 45 L 14 99 05/05/24 15:49 98.4 F 68 22 143/94 H 100 O2 Del Method 05/05/24 22:40 Room Air 05/05/24 22:30 Room Air 05/05/24 22:20 Room Air 05/05/24 22:10 Room Air 05/05/24 22:00 Room Air 05/05/24 21:50 Room Air 05/05/24 21:40 Room Air 05/05/24 21:32 Room Air 05/05/24 19:05 05/05/24 19:05 Room Air 05/05/24 19:05 Room Air 05/05/24 15:49 Room Air Pain Intensity Abdomen: Pain Intensity: 4 Transfer of Care Handoff Completed per policy Notes Mental Status: alert / awake / arousable and participated in evaluation Patient Amnestic to Procedure: Yes Nausea / Vomiting: adequately controlled Pain: adequately controlled Airway Patency, RR, SpO2: stable & adequate BP & HR: stable & adequate Hydration State: stable & adequate Anesthetic Complications: no major complications apparent and Pt Satisfied with anesthetic care
[2024-05-05] MEDS ORDERED: MoRPHine SULFATE 4 MG/ML 1 ML CARP\\VIAL IV PRN (23:02)
[2024-05-05] MEDS ORDERED: MoRPHine SULFATE 2 MG/ML CARP IV PRN (23:02)
[2024-05-05] MEDS ORDERED: oxyCODONE/ACETAMINOPHEN 5mg/325mg TAB PO PRN ×2 (23:02)
[2024-05-05] MEDS ORDERED: PROMETHAZINE 25 MG/51 ML BAG IV PRN (23:02)
[2024-05-05] MEDS: fentaNYL citrate PF 100 MCG/2 ML VIAL ONE (23:04)
[2024-05-05] MEDS: LACTATED RINGER'S 1,000 ML IV SCH (23:06)
--- NOTE | 2024-05-06 00:06 | Emergency Department Note ---
ED Provider Note History of Present Illness Chief Complaint: Abdominal Pain Stated Complaint: RT SIDE PAIN APPENDICITS Time Seen by Provider: 05/05/24 16:16 Source: patient Mode of arrival: ambulatory Limitations: no limitations This patient is a 48-year-old male who presents to the emergency department for evaluation of right-sided abdominal pain. Patient states that he was traveling last week and became sick with flulike symptoms. He returned home and his flulike symptoms gradually resolved, however he had continued right-sided abdominal pain. Pain is primarily in the right lower abdomen and is worse with movements. He reports decreased appetite. He denies nausea/vomiting. He had some diarrhea with the initial illness but states that this has resolved. Home Medications Medication Instructions Recorded Confirmed Type Multivitamin 1 tab PO DAILY #0 tabs 10/04/16 History Allergies Allergy/AdvReac Type Severity Reaction Status Date / Time Iodinated Contrast Media Allergy Mild Hives Unverified 05/05/24 18:38 Past Med/Surg History Problem List (Updated 05/06/24 @ 00:12 by Crystal Harvey PA-C) Acute appendicitis (Acute) Encounter for pre-operative examination Appendicitis, acute Dehydration (Acute) Vomiting (Acute) Medical History No significant active problems Social History Smoking Status: Never smoker Preferred Language: [place] Feels Safe at Home: Yes Physical Exam Vital Signs Vital Signs - 24 hr 05/05/24 15:49 05/05/24 19:05 05/05/24 19:05 Temperature 36.9 C Temperature Source Temporal Artery Scan Pulse Rate 68 45 L Pulse Rate [Apical] 46 L Pulse Rhythm Regular Pulse Rhythm [Apical] Regular Pulse Strength [Apical] Normal Respiratory Rate 22 14 16 Respiratory Effort / Characteristics Non-Labored Non-Labored Spontaneous Respiratory Depth Normal Normal Respiratory Pattern Regular Blood Pressure 143/94 H Blood Pressure [Right Arm] 135/80 Blood Pressure Mean 110 Blood Pressure Mean [Right Arm] 98 Blood Pressure Position [Right Arm] Lying Pulse Oximetry 100 99 100 Oxygen Delivery Method Room Air Room Air Room Air Sepsis Recent Fever Within 48 Hours No Sepsis New/Unexplained Change in Mental Status No Sepsis Action Taken by Nursing No Action Required 05/05/24 19:05 05/05/24 21:32 Temperature 36.1 C L Temperature Source Temporal Artery Scan Pulse Rate 43 L Pulse Rate [Apical] 97 H Pulse Rhythm Pulse Rhythm [Apical] Regular Pulse Strength [Apical] Normal Respiratory Rate 20 Respiratory Effort / Characteristics Non-Labored Spontaneous Respiratory Depth Normal Respiratory Pattern Regular Blood Pressure Blood Pressure [Right Arm] 143/78 H Blood Pressure Mean Blood Pressure Mean [Right Arm] 99 Blood Pressure Position [Right Arm] Semi-fowlers Pulse Oximetry 98 Oxygen Delivery Method Room Air Sepsis Recent Fever Within 48 Hours Sepsis New/Unexplained Change in Mental Status Sepsis Action Taken by Nursing VITALS: Vitals are noted on the nurse's note and reviewed by myself. GENERAL: This is a 48-year-old male, in no acute distress, well-developed well- nourished. HEART: Regular rate and rhythm without murmurs gallops or rubs. LUNGS: Clear to auscultation bilaterally without wheezes, rales or rhonchi. ABDOMEN: Positive bowel sounds x 4. Soft, moderate tenderness in the right lower quadrant. No guarding or rebound tenderness. NEURO: Patient was alert and oriented to person place and time. Course Consultations Consultation #1: Dr. Barreto - general surgery Administered Medications Lactated Ringer's (Lr) 1,000 mls @ 100 mls/hr IV .Q10H CLARISA Stop: 06/04/24 23:01 Last Admin: 05/05/24 23:06 Dose: 100 mls/hr Documented By: LAKHWINDER Discontinued Medications Bupivacaine HCl/Epinephrine Bitart (Bupivacaine/Epinephrine 0.5% Mpf 1:200,000 30 Ml Vial) Confirm Administered Dose 30 ml .ROUTE .[facility] Stop: 05/05/24 19:45 Last Admin: 05/05/24 21:23 Dose: 20 ml Documented By: [facility] Fentanyl Citrate (Fentanyl Citrate Pf 100 Mcg/2 Ml Vial) 25 mcg IV Q5M PRN PRN Reason: PACU Use Only-Pain Stop: 05/06/24 04:12 Last Admin: 05/05/24 22:14 Dose: 25 mcg Documented By: Admin: 05/05/24 22:09 Dose: 25 mcg Documented By: Admin: 05/05/24 22:04 Dose: 25 mcg Documented By: Admin: 05/05/24 21:59 Dose: 25 mcg Documented By: TIFFANI Fentanyl Citrate (Fentanyl Citrate Pf 100 Mcg/2 Ml Vial) Confirm Administered Dose 100 mcg .ROUTE .[facility]-MED ONE Stop: 05/05/24 21:59 Last Admin: 05/05/24 23:04 Dose: Not Given Documented By: LAKHWINDER Cefoxitin Sodium (Mefoxin) 2,000 mg in 60 mls @ 100 mls/hr IV NOW STA Stop: 05/05/24 20:13 Last Infusion: 05/05/24 20:19 Dose: Infused Documented By: Admin: 05/05/24 19:46 Dose: 100 mls/hr Documented By: MARIELY Medical Decision Making Differential Diagnosis Appendicitis, testicular torsion, infections, diverticulitis, UTI, obstruction, mesenteric ischemia, aortic pathology, inflammatory bowel disease, renal colic, PUD, pancreatitis, biliary pathology, hernia, volvulus, constipation, as well as other pathologies. Laboratory Data Attestation: I reviewed the patient's lab results. 05/05/24 17:48 05/05/24 17:48 Lab Results 05/05/24 05/05/24 Range/Units 17:48 18:05 WBC 8.16 (4.8-10.8) K/ul RBC 4.89 (4.70-6.10) M/uL Hgb 15.1 (14.0-18.0) g/dl Hct 41.9 L (42.0-52.0) % MCV 85.7 (80.0-100.0) fL MCH 30.9 (25.0-34.0) pg MCHC 36.0 (32.0-36.0) g/dL RDW Std Deviation 39.7 (36.4-46.3) fL RDW Coeff of Dimitry 12.7 (11.5-14.5) % Plt Count 291 (130-400) K/uL MPV 9.1 L (9.4-12.4) fL Immature Gran % (Auto) 0.1 % Neut % (Auto) 44.7 % Lymph % (Auto) 47.1 % [place] % (Auto) 5.1 % Eos % (Auto) 2.5 % Baso % (Auto) 0.5 % Neut # (Auto) 3.65 (1.40-6.50) K/uL Lymph # (Auto) 3.84 H (1.20-3.40) K/uL [place] # (Auto) 0.42 (0.11-0.59) K/uL Eos # (Auto) 0.20 (0.00-0.50) K/uL Baso # (Auto) 0.04 (0.00-0.20) K/uL Immature Gran # (Auto) 0.01 (0.01-0.20) K/uL Sodium 139 (136-145) mmol/L Potassium 4.5 (3.5-5.1) mmol/L Chloride 103 (98-107) mmol/L Carbon Dioxide 28 (21-32) mmol/L Anion Gap 8 (3-11) BUN 14 (6-23) mg/dl Creatinine 0.94 (0.6-1.4) mg/dl Est Cr Clr Drug Dosing 104.3 ml/min Est GFR ( Amer) 109.9 ml/min Est GFR (Non-Af Amer) 94.8 ml/min BUN/Creatinine Ratio 14.9 (10-20) Glucose 92 (70-99(Fasting)) mg/dl Calcium 9.6 (8.6-10.3) mg/dl Total Bilirubin 0.5 (0.2-1.0) mg/dl AST 21 (13-39) U/L ALT 25 (7-52) U/L Alkaline Phosphatase 51 (34-104) U/L Total Protein 8.3 (6.0-8.3) gm/dl Albumin 4.8 (3.4-5.0) gm/dl Globulin 3.5 (2.5-4.0) gm/dl Albumin/Globulin Ratio 1.4 (0.9-2) Lipase 23 (11-82) U/L Urine Color Yellow Urine Appearance Clear (Clear) Urine pH 6.5 (4.5-7.5) Ur Specific [place] 1.014 (1.000-1.030) Urine Protein Negative (Negative) Urine Glucose (UA) Negative (Negative) Urine Ketones Negative (Negative) Urine Blood Negative (Negative) Urine Nitrite Negative (Negative) Urine Bilirubin Negative (Negative) Urine Urobilinogen Negative (Negative) Ur Leukocyte Esterase Negative (Negative) Imaging Data Attestation: I personally reviewed and interpreted this imaging study as follows: Radiologist's Impression: Abdomen/Pelvis CT 05/05/24 16:17 CT SCAN OF THE ABDOMEN AND PELVIS WITHOUT IV CONTRAST CLINICAL HISTORY: Right lower quadrant abdominal pain. COMPARISON STUDY: No priors. TECHNIQUE: CT scan of the abdomen and pelvis is performed from the lung bases to the proximal femora. Images are reviewed in the axial, sagittal, and coronal planes. IV contrast was not administered for this examination. A dose lowering technique was utilized adhering to the principles of ALARA. CT DOSE: 695.26 mGy.cm FINDINGS: Lung bases: The heart is normal in size and without pericardial effusion. The lung bases are clear. Liver: The unenhanced liver is normal in size, contour, and attenuation. There is no intrahepatic biliary ductal dilatation. Gallbladder: Unremarkable. Spleen: Normal in size and attenuation. Pancreas: Unremarkable. Adrenal glands: Unremarkable. Kidneys: The unenhanced kidneys are normal in size and without hydronephrosis. There are no renal calculi identified. There is no evidence of contour deforming renal mass lesion. A circumaortic left renal vein is incidentally noted. Abdominal vasculature: The abdominal aorta is normal in course and caliber. Bowel: There is no bowel obstruction. Mild fecal retention is seen throughout the colon. There are scattered colonic diverticula without CT evidence of acute diverticulitis. The appendix is dilated, measuring up to 10 mm as seen on image #222. The appendiceal wall is thickened and there is surrounding infiltration. There are several calcified appendicoliths as seen on images #214 and #221. This is consistent with acute appendicitis. No fluid collection is seen to suggest abscess. Peritoneum: There is trace free fluid in the pelvis. No intraperitoneal free air is identified. There is a fat-containing umbilical hernia. Lymphadenopathy: Prominent mesenteric lymph nodes in the right lower quadrant are likely reactive. Pelvic viscera: The bladder, prostate, and seminal vesicles are normal as imaged. Skeletal structures: No lytic or blastic lesions are seen. IMPRESSION: 1. Acute appendicitis. 2. There is no evidence of abscess or perforation. ACT 112: Negative or not required by law. Electronically signed by: Ignacio Mckeon M.D. 05/05/2024 7:00 PM MDM Narrative This patient is a 48-year-old male who presents to the emergency department for evaluation of right lower quadrant abdominal pain. Labs unremarkable. CT was performed without contrast due to patient's IV contrast allergy and was positive for appendicitis. General surgery was consulted and agreed to evaluate the patient. He was given a dose of Mefoxin while in the ED. Impression Acute appendicitis Discharge Plan Visit Data Chief Complaint: Abdominal Pain Stated Complaint: RT SIDE PAIN APPENDICITS ED Provider: Dave Perea ED Midlevel Provider: Crystal Harvey Discharge Problem: Acute appendicitis Patient Disposition: Admitted As Inpatient Discharge Instructions Interventions: ED Discharge Assessment Last Done: 05/05/24 20:29 Discharge Problem: Acute appendicitis Qualifiers: Acute appendicitis type: with localized peritonitis Appendicitis gangrene presence: unspecified whether gangrene present Appendicitis perforation presence: without perforation Appendicitis abscess presence: without abscess Q ualified Code(s): K35.30 - Acute appendicitis with localized peritonitis, without perforation or gangrene
[2024-05-06] MEDS: cefOXitin 2,000 MG in DEXTROSE 5 % MINI-B 50 ML IV SCH (03:02)
[2024-05-06 07:31] VITALS: BP 110/63; PULSE 45; RESP 16; TEMP 97.7; O2SAT 97
[2024-05-06] MEDS ORDERED: cefOXitin 2,000 MG in DEXTROSE 5 % MINI-B 50 ML IV SCH (10:00)
== END 2024-05-06 10:33 | disposition home or self-care (01) ==
LOC: ED 15:41 → 3W 20:24 → OR 20:24